=== PATIENT | male | born 1955 | race Caucasian/White ===

== ENCOUNTER 2023-12-22 11:56 | Inpatient (IN) | payer MEDICARE, MEDICAID ==
[~2023-12-22] VITALS: Ht 175.3 cm; Wt 90.1 kg
[~2023-12-22 11:56] MED LIST: AMLO5TAB16 PO; APIX5TAB3 PO; FOLI1TAB27 PO; MULT-1085 PO; THIA50TA10 PO
[2023-12-22] MEDS: methylPREDNISolone sod succ 125mg/2ml vial IV ONE (12:45)
[2023-12-22 12:55] LABS: BASOPHILS # (AUTO) 0.1 X10'3 (0-0.2); BASOPHILS % (AUTO) 0.9 % (0-1); EOSINOPHILS # (AUTO) 0.1 X10'3 (0-0.9); EOSINOPHILS % (AUTO) 0.7 % (0-6); LYMPHOCYTES % (AUTO) 12.9 % (21-51); MEAN PLATELET VOLUME 6.9 FL (7.4-10.4); MONOCYTES # (AUTO) 0.8 X10'3 (0-0.9); MONOCYTES % (AUTO) 10.1 % (2-12); NEUTROPHILS # (AUTO) 6.1 X10'3 (1.8-7.7); NEUTROPHILS % (AUTO) 75.4 % (42-75); PLATELET COUNT 284 X10'3 (140-440); WHITE BLOOD COUNT 8.1 X10'3 (4.5-11.0)
[2023-12-22] MEDS: diphenhydrAMINE 50 mg/ml inj IV ONE (12:55)
[2023-12-22] MEDS: ipratropium/albuterol 3ml nebule NEB ONE (13:00)
[2023-12-22 13:03] VITALS: PULSE 2; RESP 16; O2SAT 91
[2023-12-22 13:09] VITALS: PULSE 84; RESP 18; O2SAT 98
[2023-12-22 13:11] LABS: APTT 31 SECONDS (22-32); D-DIMER 0.39 MG/L FEU (0-0.50); PROTHROMBIN TIME 11.1 SECONDS (9.0-12.0)
[2023-12-22 13:19] LABS: ALBUMIN 2.9 G/DL (3.4-5.0); ANION GAP 5 (8-16); BLOOD UREA NITROGEN 16 MG/DL (7-18); CALCIUM 8.4 MG/DL (8.5-10.1); CHLORIDE 102 MMOL/L (99-107); CREATININE 1.07 MG/DL (0.60-1.10); GLUCOSE 107 MG/DL (70-104); POTASSIUM 4.1 MMOL/L (3.5-5.1); PRO BRAIN NATRIURETIC PEPTIDE 2295 PG/ML (0-125); SODIUM 137 MMOL/L (135-145); TOTAL CARBON DIOXIDE 29.6 MMOL/L (24-32); eCRCL 68 ML/MIN; eGFR 69 ML/MIN
[2023-12-22 13:50] LABS: RED BLOOD COUNT 5.24 X10'6 (4.70-6.10)
[2023-12-22 13:51] LABS: HEMATOCRIT 39.8 % (42.0-52.0); HEMOGLOBIN 12.6 g/dl (14.0-17.9); MEAN CORPUSCULAR HEMOGLOBIN 24.1 PG (27.0-31.0); MEAN CORPUSCULAR HGB CONC 31.7 g/dL (33.0-36.5); MEAN CORPUSCULAR VOLUME 75.9 FL (78-98); RED CELL DISTRIBUTION WIDTH 16.6 % (11.5-14.5)
[2023-12-22] MEDS: CefTRIAXone 2gm/D5W 50ml BAG 50 ML IV ONE (14:14)
[2023-12-22] MEDS: normal saline 1000ML IV soln IVB ONE (14:16)
[2023-12-22] MEDS: azithromycin/NS 500mg/250ml 250 ML IV ONE (14:23)
[2023-12-22 14:35] LABS: ANISOCYTOSIS 1+; HYPOCHROMASIA 1+; MICROCYTOSIS 1+; PLATELET ESTIMATE NORMAL
[2023-12-22 14:36] LABS: ELLIPTOCYTES FEW; POLYCHROMASIA FEW
[2023-12-22] MEDS ORDERED: magnesium 2GM in 50ml NS 50 ML IV PRN (17:25)
[2023-12-22] MEDS ORDERED: morphine 2 MG/ML inj. syringe IV PRN ×2 (17:25)
[2023-12-22] MEDS ORDERED: potassium Cl 40MEQ/1/2NS 520ml 520 ML IV PRN (17:25)
[2023-12-22] MEDS ORDERED: acetaminophen 325mg tablet PO PRN (17:25)
[2023-12-22] MEDS ORDERED: magnesium Cl slow-release 64mg tablet PO PRN (17:25)
[2023-12-22] MEDS ORDERED: ondansetron/PF 4mg/2ml inj IV PRN (17:25)
[2023-12-22] MEDS: heparin 10,000 units/1 ML INJ IV ONE (17:25)
[2023-12-22] MEDS ORDERED: magnesium 4gm in 100ml NS 100 ML IV PRN (17:25)
[2023-12-22] MEDS ORDERED: HYDROcodone/acetaminophen 5mg/325mg tablet PO PRN (17:25)
[2023-12-22] MEDS ORDERED: heparin 10,000 units/1 ML INJ IV PRN (17:25)
[2023-12-22] MEDS ORDERED: potassium Cl 20 mEq SR tablet PO PRN ×2 (17:25)
[2023-12-22] MEDS ORDERED: heparin 25,000 UNIT/250ml bag 250 ML IV PRN (17:25)
[2023-12-22] MEDS ORDERED: HYDROcodone/acetaminophen 10/325mg tab PO PRN (17:25)
[2023-12-22] MEDS: pantoprazole 40 MG vial IV ONE (18:14)
[2023-12-22] MEDS: furosemide 10 MG/1 ML 10ml inj IV ONE (18:15)
[2023-12-22] MEDS: nicotine 14mg patch - 24hr TD SCH (18:20)
[2023-12-22] MEDS ORDERED: apixaban 5mg tablet PO SCH (20:00)
[2023-12-22 22:40] VITALS: BP 134/82; PULSE 84; RESP 22; TEMP 97.7; O2SAT 94
[2023-12-22] MEDS: heparin 25,000 UNIT/250ml bag 250 ML IV PRN (23:06)
[2023-12-23 02:00] VITALS: BP 140/85; PULSE 90; RESP 19; TEMP 98.1; O2SAT 93
[2023-12-23 03:15] VITALS: RESP 18; O2SAT 93
[2023-12-23 06:00] VITALS: BP 137/84; PULSE 75; RESP 20; TEMP 98.3; O2SAT 90
[2023-12-23 07:45] LABS: BASOPHILS # (AUTO) 0.1 X10'3 (0-0.2); BASOPHILS % (AUTO) 0.8 % (0-1); EOSINOPHILS # (AUTO) 0.2 X10'3 (0-0.9); EOSINOPHILS % (AUTO) 1.9 % (0-6); HEMATOCRIT 41.8 % (42.0-52.0); LYMPHOCYTES # (AUTO) 1.5 X10'3 (1.1-4.8); LYMPHOCYTES % (AUTO) 14.8 % (21-51); MEAN CORPUSCULAR HEMOGLOBIN 24.1 PG (27.0-31.0); MEAN CORPUSCULAR VOLUME 77.6 FL (78-98); MEAN PLATELET VOLUME 7.2 FL (7.4-10.4); MONOCYTES % (AUTO) 9.7 % (2-12); NEUTROPHILS # (AUTO) 7.2 X10'3 (1.8-7.7); NEUTROPHILS % (AUTO) 72.8 % (42-75); PLATELET COUNT 279 X10'3 (140-440); RED BLOOD COUNT 5.39 X10'6 (4.70-6.10); RED CELL DISTRIBUTION WIDTH 17.2 % (11.5-14.5); WHITE BLOOD COUNT 9.9 X10'3 (4.5-11.0)
[2023-12-23 07:58] LABS: ALANINE AMINOTRANSFERASE 26 U/L (12-78); ALBUMIN/GLOBULIN RATIO 0.7 (1.1-1.5); ALKALINE PHOSPHATASE 88 IU/L (46-116); ANION GAP 6 (8-16); ASPARTATE AMINO TRANSFERASE 30 U/L (10-37); BILIRUBIN,TOTAL 0.5 MG/DL (0.1-1.0); BLOOD UREA NITROGEN 13 MG/DL (7-18); CALCIUM 8.6 MG/DL (8.5-10.1); CHLORIDE 101 MMOL/L (99-107); CREATININE 1.08 MG/DL (0.60-1.10); GLUCOSE 95 MG/DL (70-104); POTASSIUM 4.1 MMOL/L (3.5-5.1); SODIUM 141 MMOL/L (135-145); TOTAL CARBON DIOXIDE 34.1 MMOL/L (24-32); TOTAL PROTEIN 7.1 G/DL (6.4-8.2); eCRCL 67 ML/MIN; eGFR 68 ML/MIN
[2023-12-23] MEDS: furosemide 20 MG/2 ML vial IV SCH (09:07)
[2023-12-23 15:00] VITALS: BP 112/76; PULSE 86; RESP 23; TEMP 97.7; O2SAT 99
[2023-12-23 18:00] VITALS: BP 130/78; PULSE 86; RESP 18; TEMP 97.5; O2SAT 93
[2023-12-23] MEDS ORDERED: LORazepam 0.5 MG tablet PO PRN (18:45)
[2023-12-23] MEDS ORDERED: LORazepam 2 mg/ml vial IV PRN (18:45)
[2023-12-23] MEDS: heparin 10,000 units/1 ML INJ IV PRN (20:32)
[2023-12-23] MEDS: benzonatate 100mg capsule PO PRN (20:35)
[2023-12-23 22:00] VITALS: BP 107/66; PULSE 82; RESP 16; TEMP 97.7; O2SAT 92
[2023-12-24 02:00] VITALS: BP 118/73; PULSE 82; RESP 21; TEMP 97.1; O2SAT 94
[2023-12-24 06:45] VITALS: BP 130/79; PULSE 73; RESP 19; TEMP 97.5; O2SAT 98
[2023-12-24 07:19] LABS: BASOPHILS # (AUTO) 0.1 X10'3 (0-0.2); BASOPHILS % (AUTO) 0.9 % (0-1); EOSINOPHILS # (AUTO) 0.1 X10'3 (0-0.9); EOSINOPHILS % (AUTO) 1.4 % (0-6); LYMPHOCYTES # (AUTO) 1.1 X10'3 (1.1-4.8); LYMPHOCYTES % (AUTO) 12.5 % (21-51); MEAN PLATELET VOLUME 7.6 FL (7.4-10.4); MONOCYTES % (AUTO) 11.6 % (2-12); NEUTROPHILS # (AUTO) 6.6 X10'3 (1.8-7.7); NEUTROPHILS % (AUTO) 73.6 % (42-75); PLATELET COUNT 288 X10'3 (140-440); RED CELL DISTRIBUTION WIDTH 17.4 % (11.5-14.5)
[2023-12-24 07:49] LABS: ALANINE AMINOTRANSFERASE 22 U/L (12-78); ALBUMIN 2.6 G/DL (3.4-5.0); ALBUMIN/GLOBULIN RATIO 0.6 (1.1-1.5); ALKALINE PHOSPHATASE 84 IU/L (46-116); ANION GAP -1 (8-16); ASPARTATE AMINO TRANSFERASE 15 U/L (10-37); BILIRUBIN,TOTAL 0.4 MG/DL (0.1-1.0); BLOOD UREA NITROGEN 14 MG/DL (7-18); BUN/CREATININE RATIO 14.7 (10.0-20.0); CALCIUM 8.6 MG/DL (8.5-10.1); CHLORIDE 103 MMOL/L (99-107); CREATININE 0.95 MG/DL (0.60-1.10); GLUCOSE 84 MG/DL (70-104); POTASSIUM 4.2 MMOL/L (3.5-5.1); SODIUM 142 MMOL/L (135-145); TOTAL CARBON DIOXIDE 39.7 MMOL/L (24-32); TOTAL PROTEIN 7.1 G/DL (6.4-8.2); eCRCL 76 ML/MIN; eGFR 79 ML/MIN
[2023-12-24 07:52] LABS: HEMATOCRIT 44.8 % (42.0-52.0); HEMOGLOBIN 14.3 g/dl (14.0-17.9); MEAN CORPUSCULAR HGB CONC 31.9 g/dL (33.0-36.5); MEAN CORPUSCULAR VOLUME 75.2 FL (78-98); RED BLOOD COUNT 5.96 X10'6 (4.70-6.10)
[2023-12-24] MEDS: acetaminophen 325mg tablet PO PRN (08:04)
[2023-12-24] MEDS: thiamine 100mg tablet PO SCH (08:04)
[2023-12-24] MEDS: folic acid 1mg tablet PO SCH (08:04)
[2023-12-24] MEDS: multivitamins, therapeutics tablet PO SCH (08:04)
[2023-12-24 11:00] VITALS: BP 115/70; PULSE 75; RESP 16; TEMP 97.8; O2SAT 94
[2023-12-24] MEDS ORDERED: NICO-631 TD (12:15)
[2023-12-24] MEDS ORDERED: APIX5TAB3 PO (12:15)
[2023-12-24] MEDS ORDERED: FURO20TA4 PO (12:15)
== END 2023-12-24 14:37 | disposition home or self-care (01) | DRG 299 ==
LOC: ER 11:56 → ED HOLD 17:30 → PCU 3S 22:35
PROVIDERS: ADMIT Internal Medicine; ATTEND Internal Medicine
PROC: CB121ZZ Planar Nuclear Medicine Imaging of Lungs and Bronchi using Technetium 99m (Tc-99m) (ICD-10-PCS; principal; 2023-12-23)
DX: I82.411 Acute embolism and thrombosis of right femoral vein (principal); J96.01 Acute respiratory failure with hypoxia; I13.0 Hypertensive heart and chronic kidney disease with heart failure and stage 1 through stage 4 chronic kidney disease, or unspecified chronic kidney disease; I50.9 Heart failure, unspecified; F17.210 Nicotine dependence, cigarettes, uncomplicated; N18.30 Chronic kidney disease, stage 3 unspecified; Z20.822 Contact with and (suspected) exposure to COVID-19; I82.511 Chronic embolism and thrombosis of right femoral vein; I82.531 Chronic embolism and thrombosis of right popliteal vein; I82.561 Chronic embolism and thrombosis of right calf muscular vein; F10.90 Alcohol use, unspecified, uncomplicated; Z86.711 Personal history of pulmonary embolism; Z88.0 Allergy status to penicillin; Z91.041 Radiographic dye allergy status; Z79.899 Other long term (current) drug therapy; Z71.6 Tobacco abuse counseling
CPT/HCPCS: 36415; 71045; 78582; 80048; 80053; 83605; 83880; 84484; 85008; 85025; 85379; 85610; 85730; 87040; 87081; 87502; 87503; 87811; 93005; 93306; 93970; 94640; 94760; 97161; 97530; 97535; 99285; A9539; A9540; C9113; G0378; J0456; J0696; J1644; J1940; J7030

== ENCOUNTER 2024-05-13 12:54 | Inpatient (IN) | payer MEDICARE, MEDICAID ==
[~2024-05-13] VITALS: Ht 175.3 cm; Wt 94.0 kg
[~2024-05-13 12:54] MED LIST changes: +FURO20TA4 PO; +NICO-631 TD
[2024-05-13 14:09] LABS: BASOPHILS # (AUTO) 0.1 X10'3 (0-0.2); BASOPHILS % (AUTO) 1.5 % (0-1); EOSINOPHILS # (AUTO) 0.1 X10'3 (0-0.9); EOSINOPHILS % (AUTO) 1.3 % (0-6); HEMATOCRIT 43.4 % (42.0-52.0); HEMOGLOBIN 12.8 g/dl (14.0-17.9); LYMPHOCYTES # (AUTO) 0.5 X10'3 (1.1-4.8); LYMPHOCYTES % (AUTO) 8.6 % (21-51); MEAN CORPUSCULAR HEMOGLOBIN 21.2 PG (27.0-31.0); MEAN CORPUSCULAR HGB CONC 29.5 g/dL (33.0-36.5); MEAN CORPUSCULAR VOLUME 71.6 FL (78-98); MEAN PLATELET VOLUME 6.9 FL (7.4-10.4); MONOCYTES # (AUTO) 0.7 X10'3 (0-0.9); MONOCYTES % (AUTO) 10.9 % (2-12); NEUTROPHILS # (AUTO) 4.8 X10'3 (1.8-7.7); NEUTROPHILS % (AUTO) 77.7 % (42-75); PLATELET COUNT 267 X10'3 (140-440); RED BLOOD COUNT 6.06 X10'6 (4.70-6.10); RED CELL DISTRIBUTION WIDTH 18.7 % (11.5-14.5); WHITE BLOOD COUNT 6.2 X10'3 (4.5-11.0)
[2024-05-13 14:28] LABS: ANION GAP 6 (8-16); BLOOD UREA NITROGEN 15 MG/DL (7-18); BUN/CREATININE RATIO 12.6 (10.0-20.0); CALCIUM 8.4 MG/DL (8.5-10.1); CHLORIDE 101 MMOL/L (99-107); CREATININE 1.19 MG/DL (0.60-1.10); GLUCOSE 121 MG/DL (70-104); PRO BRAIN NATRIURETIC PEPTIDE 1713 PG/ML (0-125); SODIUM 139 MMOL/L (135-145); TOTAL CARBON DIOXIDE 32.1 MMOL/L (24-32); eCRCL 61 ML/MIN; eGFR 61 ML/MIN
[2024-05-13 14:30] LABS: POTASSIUM 4.4 MMOL/L (3.5-5.1)
[2024-05-13] MEDS: furosemide 10 MG/1 ML 10ml inj IV ONE (15:46)
[2024-05-13] MEDS ORDERED: magnesium hydroxide 30ml (MOM) UD suspension PO PRN ×2 (16:25→17:45)
[2024-05-13] MEDS ORDERED: magnesium Cl slow-release 64mg tablet PO PRN ×2 (16:25→17:45)
[2024-05-13] MEDS ORDERED: ondansetron/PF 4mg/2ml inj IV PRN ×2 (16:25→17:45)
[2024-05-13] MEDS ORDERED: magnesium sulf-water 4G/100mL 100 ML IV PRN ×2 (16:25→17:45)
[2024-05-13] MEDS ORDERED: potassium Cl 40MEQ/1/2NS 520ml 520 ML IV PRN ×2 (16:25→17:45)
[2024-05-13] MEDS ORDERED: mag hydrox/Alum hydrox/simeth 30ml oral suspension PO PRN ×2 (16:25→17:45)
[2024-05-13] MEDS ORDERED: magnesium sulf-water 2g/50mL 50 ML IV PRN ×2 (16:25→17:45)
[2024-05-13] MEDS ORDERED: potassium Cl 20 mEq SR tablet PO PRN ×4 (16:25→17:45)
[2024-05-13] MEDS ORDERED: MELO-100 (16:38)
[2024-05-13] MEDS ORDERED: ALBUTEROL (16:38)
[2024-05-13] MEDS: furosemide 10 MG/1 ML 10ml inj IV SCH (17:15)
[2024-05-13 17:35] LABS: MAGNESIUM 2.1 MG/DL (1.5-2.4); POTASSIUM 4.4 MMOL/L (3.5-5.1)
[2024-05-13] MEDS ORDERED: albuterol 2.5 MG/3 ML nebule NEB PRN (17:40)
[2024-05-13] MEDS ORDERED: acetaminophen 325mg tablet PO PRN (17:45)
[2024-05-13] MEDS ORDERED: K and/or MAG REPLACEMENT MC SCH (20:00)
[2024-05-13] MEDS: K and/or MAG REPLACEMENT MC SCH (20:00)
[2024-05-13] MEDS: apixaban 5mg tablet PO SCH (20:08)
[2024-05-13] MEDS: docusate sod 100mg capsule PO SCH (20:08)
[2024-05-13 21:22] VITALS: PULSE 83; RESP 18; O2SAT 93
[2024-05-13 22:00] VITALS: BP 126/71; PULSE 92; RESP 16; RESP 25; TEMP 97.3; O2SAT 90
[2024-05-14 07:04] LABS: ALBUMIN 2.7 G/DL (3.4-5.0); ANION GAP 5 (8-16); BLOOD UREA NITROGEN 17 MG/DL (7-18); BUN/CREATININE RATIO 14.8 (10.0-20.0); CALCIUM 8.4 MG/DL (8.5-10.1); CHLORIDE 100 MMOL/L (99-107); CREATININE 1.15 MG/DL (0.60-1.10); GLUCOSE 92 MG/DL (70-104); MAGNESIUM 2.1 MG/DL (1.5-2.4); POTASSIUM 3.9 MMOL/L (3.5-5.1); SODIUM 140 MMOL/L (135-145); TOTAL CARBON DIOXIDE 34.6 MMOL/L (24-32); eCRCL 63 ML/MIN; eGFR 64 ML/MIN
[2024-05-14 07:25] LABS: BASOPHILS # (AUTO) 0.1 X10'3 (0-0.2); BASOPHILS % (AUTO) 1.3 % (0-1); EOSINOPHILS # (AUTO) 0.1 X10'3 (0-0.9); HEMATOCRIT 42.9 % (42.0-52.0); HEMOGLOBIN 12.6 g/dl (14.0-17.9); LYMPHOCYTES # (AUTO) 0.6 X10'3 (1.1-4.8); MEAN CORPUSCULAR HEMOGLOBIN 21.1 PG (27.0-31.0); MEAN CORPUSCULAR HGB CONC 29.4 g/dL (33.0-36.5); MEAN CORPUSCULAR VOLUME 71.9 FL (78-98); MEAN PLATELET VOLUME 7.1 FL (7.4-10.4); MONOCYTES # (AUTO) 0.8 X10'3 (0-0.9); MONOCYTES % (AUTO) 11.4 % (2-12); NEUTROPHILS # (AUTO) 5.4 X10'3 (1.8-7.7); NEUTROPHILS % (AUTO) 76.3 % (42-75); PLATELET COUNT 250 X10'3 (140-440); RED BLOOD COUNT 5.97 X10'6 (4.70-6.10); RED CELL DISTRIBUTION WIDTH 18.4 % (11.5-14.5)
[2024-05-14] MEDS: nicotine 14mg patch - 24hr TD SCH (08:37)
[2024-05-14] MEDS: folic acid 1mg tablet PO SCH (08:37)
[2024-05-14] MEDS: acetaminophen 325mg tablet PO PRN (08:37)
[2024-05-14] MEDS: thiamine 100mg tablet PO SCH (08:38)
[2024-05-14] MEDS: amLODIPine 5mg tablet PO SCH (08:38)
[2024-05-14] MEDS: multivitamins, therapeutics tablet PO SCH (08:38)
[2024-05-14 09:20] LABS: ANISOCYTOSIS 2+; MICROCYTOSIS 1+; PLATELET ESTIMATE NORMAL; POLYCHROMASIA FEW
[2024-05-14 10:01] LABS: D-DIMER 0.58 MG/L FEU (0-0.50)
[2024-05-14 10:05] VITALS: BP 125/68; PULSE 84; RESP 18; TEMP 97.6; O2SAT 92
[2024-05-14] MEDS: cefazolin 2gm/D5W 100mL 100 ML IV SCH (16:12)
[2024-05-14 18:00] VITALS: BP 125/60; PULSE 64; RESP 20; TEMP 97.8; O2SAT 95
[2024-05-14 20:00] VITALS: RESP 20; O2SAT 95
[2024-05-14 22:00] VITALS: BP 138/88; PULSE 78; RESP 16; TEMP 97; O2SAT 94
[2024-05-15] VITALS (10 sets, daily range): BP systolic 95–120; BP diastolic 66–74; PULSE 65–86; RESP 14–18; TEMP 97.3–98.2; O2SAT 91–96
[2024-05-15 06:45] LABS: BASOPHILS # (AUTO) 0.1 X10'3 (0-0.2); BASOPHILS % (AUTO) 0.9 % (0-1); EOSINOPHILS # (AUTO) 0.2 X10'3 (0-0.9); EOSINOPHILS % (AUTO) 2.1 % (0-6); HEMATOCRIT 44.7 % (42.0-52.0); HEMOGLOBIN 12.8 g/dl (14.0-17.9); LYMPHOCYTES # (AUTO) 0.7 X10'3 (1.1-4.8); LYMPHOCYTES % (AUTO) 8.8 % (21-51); MEAN CORPUSCULAR HEMOGLOBIN 20.8 PG (27.0-31.0); MEAN CORPUSCULAR HGB CONC 28.6 g/dL (33.0-36.5); MEAN CORPUSCULAR VOLUME 72.5 FL (78-98); MEAN PLATELET VOLUME 6.9 FL (7.4-10.4); MONOCYTES # (AUTO) 1.1 X10'3 (0-0.9); MONOCYTES % (AUTO) 13.2 % (2-12); NEUTROPHILS # (AUTO) 6.1 X10'3 (1.8-7.7); PLATELET COUNT 268 X10'3 (140-440); RED BLOOD COUNT 6.16 X10'6 (4.70-6.10); RED CELL DISTRIBUTION WIDTH 18.7 % (11.5-14.5); WHITE BLOOD COUNT 8.2 X10'3 (4.5-11.0)
[2024-05-15 06:56] LABS: ALBUMIN 2.6 G/DL (3.4-5.0); ANION GAP 1 (8-16); BLOOD UREA NITROGEN 18 MG/DL (7-18); BUN/CREATININE RATIO 16.1 (10.0-20.0); C-REACTIVE PROTEIN 1.03 MG/DL (0.0-0.5); CALCIUM 8.5 MG/DL (8.5-10.1); CHLORIDE 101 MMOL/L (99-107); CREATININE 1.12 MG/DL (0.60-1.10); GLUCOSE 93 MG/DL (70-104); MAGNESIUM 2.2 MG/DL (1.5-2.4); POTASSIUM 3.9 MMOL/L (3.5-5.1); SODIUM 140 MMOL/L (135-145); TOTAL CARBON DIOXIDE 38.4 MMOL/L (24-32); eCRCL 65 ML/MIN; eGFR 66 ML/MIN
[2024-05-15] MEDS: albuterol 2.5 MG/3 ML nebule NEB PRN (20:30)
[2024-05-16 05:59] LABS: BASOPHILS # (AUTO) 0.1 X10'3 (0-0.2); BASOPHILS % (AUTO) 1.1 % (0-1); EOSINOPHILS # (AUTO) 0.1 X10'3 (0-0.9); EOSINOPHILS % (AUTO) 1.6 % (0-6); HEMATOCRIT 45.4 % (42.0-52.0); HEMOGLOBIN 13.4 g/dl (14.0-17.9); LYMPHOCYTES % (AUTO) 11.8 % (21-51); MEAN CORPUSCULAR HEMOGLOBIN 21.2 PG (27.0-31.0); MEAN CORPUSCULAR HGB CONC 29.6 g/dL (33.0-36.5); MEAN CORPUSCULAR VOLUME 71.7 FL (78-98); MEAN PLATELET VOLUME 7.1 FL (7.4-10.4); MONOCYTES # (AUTO) 1.2 X10'3 (0-0.9); MONOCYTES % (AUTO) 14.9 % (2-12); NEUTROPHILS # (AUTO) 5.9 X10'3 (1.8-7.7); NEUTROPHILS % (AUTO) 70.6 % (42-75); PLATELET COUNT 264 X10'3 (140-440); RED BLOOD COUNT 6.32 X10'6 (4.70-6.10); RED CELL DISTRIBUTION WIDTH 18.7 % (11.5-14.5); WHITE BLOOD COUNT 8.3 X10'3 (4.5-11.0)
[2024-05-16 06:19] LABS: ALBUMIN 2.8 G/DL (3.4-5.0); ANION GAP 2 (8-16); BLOOD UREA NITROGEN 21 MG/DL (7-18); BUN/CREATININE RATIO 16.3 (10.0-20.0); CALCIUM 8.8 MG/DL (8.5-10.1); CHLORIDE 99 MMOL/L (99-107); CREATININE 1.29 MG/DL (0.60-1.10); GLUCOSE 97 MG/DL (70-104); MAGNESIUM 2.1 MG/DL (1.5-2.4); POTASSIUM 3.9 MMOL/L (3.5-5.1); SODIUM 140 MMOL/L (135-145); TOTAL CARBON DIOXIDE 38.6 MMOL/L (24-32); eCRCL 56 ML/MIN; eGFR 56 ML/MIN
[2024-05-16] MEDS: furosemide 20 MG/2 ML vial IV SCH (07:38)
[2024-05-16 08:00] VITALS: RESP 18; O2SAT 95
[2024-05-16] MEDS: predniSONE 20 mg tablet PO SCH (08:30)
[2024-05-16 09:55] VITALS: PULSE 92; RESP 18; O2SAT 92
[2024-05-16 10:00] VITALS: BP 134/67; PULSE 72; RESP 16; TEMP 97.8; O2SAT 98
[2024-05-16] MEDS ORDERED: CEPH500C2 PO (13:20)
[2024-05-16] MEDS ORDERED: BUDE10.2 INH (13:20)
[2024-05-16] MEDS ORDERED: PRED10TA23 PO (13:20)
[2024-05-16] MEDS ORDERED: LACT1CAP76 PO (13:20)
== END 2024-05-16 14:32 | disposition home or self-care (01) | DRG 602 ==
LOC: ER 12:54 → ED HOLD 16:30 → UNDOADMIN 16:30 → ED HOLD 17:46 → ORTHO 4S 21:55
PROVIDERS: ADMIT Family Medicine; ATTEND Family Medicine
DX: L03.116 Cellulitis of left lower limb (principal); I50.33 Acute on chronic diastolic (congestive) heart failure; J96.01 Acute respiratory failure with hypoxia; I82.501 Chronic embolism and thrombosis of unspecified deep veins of right lower extremity; I11.0 Hypertensive heart disease with heart failure; L03.115 Cellulitis of right lower limb; J44.9 Chronic obstructive pulmonary disease, unspecified; F17.210 Nicotine dependence, cigarettes, uncomplicated; Z91.041 Radiographic dye allergy status; Z88.0 Allergy status to penicillin; Z84.1 Family history of disorders of kidney and ureter; Z82.49 Family history of ischemic heart disease and other diseases of the circulatory system; Z79.01 Long term (current) use of anticoagulants; Z86.711 Personal history of pulmonary embolism
CPT/HCPCS: 36415; 71045; 80048; 83605; 83735; 83880; 84132; 84145; 84484; 85008; 85025; 85379; 86140; 87081; 93005; 93970; 94640; 94760; 99285; A4615; A6209; A6258; G0378; J0690; J1940; J7040; J7512

== ENCOUNTER 2024-08-02 11:39 | Inpatient (IN) | payer MEDICARE, MEDICAID ==
[~2024-08-02] VITALS: Ht 175.3 cm; Wt 110.0 kg
[2024-08-02] VITALS (8 sets, daily range): BP systolic 130; BP diastolic 76; PULSE 80–103; RESP 16–22; TEMP 97.6; O2SAT 90–93
[~2024-08-02 11:39] MED LIST changes: +ALBUTEROL; +BUDE10.2 INH; +LACT1CAP76 PO; +MELO-100
[2024-08-02] MEDS: aspirin 81mg tab.chew PO ONE (12:03)
[2024-08-02 12:20] LABS: ALBUMIN 2.8 G/DL (3.4-5.0); ANION GAP 6 (8-16); BLOOD UREA NITROGEN 27 MG/DL (7-18); BUN/CREATININE RATIO 16.7 (10.0-20.0); CALCIUM 8.1 MG/DL (8.5-10.1); CHLORIDE 103 MMOL/L (99-107); CREATININE 1.62 MG/DL (0.60-1.10); GLUCOSE 138 MG/DL (70-104); MAGNESIUM 2.3 MG/DL (1.5-2.4); POTASSIUM 4.2 MMOL/L (3.5-5.1); PRO BRAIN NATRIURETIC PEPTIDE 3939 PG/ML (0-125); SODIUM 140 MMOL/L (135-145); TOTAL CARBON DIOXIDE 31.2 MMOL/L (24-32); eCRCL 45 ML/MIN; eGFR 43 ML/MIN
[2024-08-02 12:21] LABS: BASOPHILS # (AUTO) 0.1 X10'3 (0-0.2); EOSINOPHILS # (AUTO) 0.1 X10'3 (0-0.9); EOSINOPHILS % (AUTO) 0.8 % (0-6); LYMPHOCYTES # (AUTO) 0.9 X10'3 (1.1-4.8); LYMPHOCYTES % (AUTO) 13.1 % (21-51); MEAN PLATELET VOLUME 7.3 FL (7.4-10.4); MONOCYTES # (AUTO) 0.8 X10'3 (0-0.9); MONOCYTES % (AUTO) 12.6 % (2-12); NEUTROPHILS # (AUTO) 4.8 X10'3 (1.8-7.7); NEUTROPHILS % (AUTO) 72.5 % (42-75); PLATELET COUNT 255 X10'3 (140-440); RED BLOOD COUNT 5.24 X10'6 (4.70-6.10); RED CELL DISTRIBUTION WIDTH 20.7 % (11.5-14.5); WHITE BLOOD COUNT 6.6 X10'3 (4.5-11.0)
[2024-08-02] MEDS: aspirin 325mg tablet PO ONE (12:32)
[2024-08-02] MEDS: furosemide 10 MG/1 ML 10ml inj IV ONE (12:40)
[2024-08-02 12:48] LABS: HEMATOCRIT 35.7 % (42.0-52.0); HEMOGLOBIN 10.2 g/dl (14.0-17.9); MEAN CORPUSCULAR VOLUME 71.2 FL (78-98)
[2024-08-02 12:49] LABS: MEAN CORPUSCULAR HEMOGLOBIN 20.3 PG (27.0-31.0); MEAN CORPUSCULAR HGB CONC 28.5 g/dL (33.0-36.5)
[2024-08-02 12:51] LABS: ANISOCYTOSIS 3+; HYPOCHROMASIA 1+; LARGE PLATELETS FEW; MICROCYTOSIS 1+; PLATELET ESTIMATE NORMAL; SPHEROCYTES 1+
[2024-08-02 12:52] LABS: ELLIPTOCYTES FEW; TEAR DROP CELLS FEW
[2024-08-02 13:02] LABS: D-DIMER 0.76 MG/L FEU (0-0.50); INR 1.1 INR; PROTHROMBIN TIME 11.7 SECONDS (9.0-12.0)
[2024-08-02] MEDS ORDERED: potassium Cl 40MEQ/1/2NS 520ml 520 ML IV PRN (13:05)
[2024-08-02] MEDS ORDERED: magnesium sulf-water 4G/100mL 100 ML IV PRN (13:05)
[2024-08-02] MEDS ORDERED: magnesium Cl slow-release 64mg tablet PO PRN (13:05)
[2024-08-02] MEDS: PERFLUTREN PROTEIN-A MICROSPHR (Optison) 0.22 MG/ML 3ML VIAL IV ONE (13:05)
[2024-08-02] MEDS ORDERED: magnesium hydroxide 30ml (MOM) UD suspension PO PRN (13:05)
[2024-08-02] MEDS ORDERED: magnesium sulf-water 2g/50mL 50 ML IV PRN (13:05)
[2024-08-02] MEDS ORDERED: potassium Cl 20 mEq SR tablet PO PRN ×2 (13:05)
[2024-08-02] MEDS ORDERED: mag hydrox/Alum hydrox/simeth 30ml oral suspension PO PRN (13:05)
[2024-08-02] MEDS ORDERED: ondansetron/PF 4mg/2ml inj IV PRN (13:05)
[2024-08-02] MEDS: heparin 25,000 UNIT/250ml bag 250 ML IV PRN (13:29)
[2024-08-02] MEDS: heparin 10,000 units/1 ML INJ IV ONE (13:33)
[2024-08-02] MEDS: MESSAGE TO NURSING IV ONE ×2 (13:42→20:55)
[2024-08-02 14:02] LABS: URINE AMPHETAMINE SCREEN NEGATIVE (Neg); URINE BARBITUATE SCREEN NEGATIVE (Neg); URINE BENZODIAZEPINES SCREEN NEGATIVE (Neg); URINE CANNABINOID SCREEN POSITIVE (Neg); URINE COCAINE SCREEN NEGATIVE (Neg); URINE METHADONE SCREEN NEGATIVE (Neg); URINE OPIATE SCREEN NEGATIVE (Neg); URINE PHENCYCLIDINE SCREEN NEGATIVE (Neg)
[2024-08-02] MEDS: ipratropium/albuterol 3ml nebule NEB SCH (16:13)
[2024-08-02] MEDS ORDERED: ipratropium/albuterol 3ml nebule NEB PRN (19:30)
[2024-08-02] MEDS: metoprolol succinate 25mg (24-HOUR) SR. Tablet PO SCH (19:30)
[2024-08-02] MEDS ORDERED: albuterol 2.5 MG/3 ML nebule NEB PRN (19:30)
[2024-08-02] MEDS ORDERED: nicotine 14mg patch - 24hr TD PRN (19:55)
[2024-08-02] MEDS ORDERED: heparin, porcine 5000 units/ml vial SQ SCH (20:00)
[2024-08-02] MEDS: sacubitril/valsartan 24mg-26mg tablet PO SCH (20:00)
[2024-08-02] MEDS: K and/or MAG REPLACEMENT MC SCH (20:00)
[2024-08-02] MEDS: heparin 10,000 units/1 ML INJ IV PRN (21:27)
[2024-08-02] MEDS: furosemide 10 MG/1 ML 10ml inj IV SCH (21:41)
[2024-08-02] MEDS: EMPAGLIFLOZIN 10 MG TABLET PO SCH (21:51)
[2024-08-03] VITALS (15 sets, daily range): BP systolic 102–131; BP diastolic 65–78; PULSE 71–89; RESP 12–22; TEMP 97.6–98; O2SAT 86–96
[2024-08-03] MEDS: MESSAGE TO NURSING IV ONE (05:30)
[2024-08-03 06:47] LABS: BASOPHILS # (AUTO) 0.1 X10'3 (0-0.2); BASOPHILS % (AUTO) 0.7 % (0-1); EOSINOPHILS # (AUTO) 0.1 X10'3 (0-0.9); EOSINOPHILS % (AUTO) 0.6 % (0-6); HEMOGLOBIN 10.2 g/dl (14.0-17.9); LYMPHOCYTES # (AUTO) 0.8 X10'3 (1.1-4.8); LYMPHOCYTES % (AUTO) 8.7 % (21-51); MEAN PLATELET VOLUME 7.1 FL (7.4-10.4); MONOCYTES # (AUTO) 1.1 X10'3 (0-0.9); MONOCYTES % (AUTO) 12.6 % (2-12); NEUTROPHILS # (AUTO) 6.8 X10'3 (1.8-7.7); NEUTROPHILS % (AUTO) 77.4 % (42-75); PLATELET COUNT 248 X10'3 (140-440); RED BLOOD COUNT 4.95 X10'6 (4.70-6.10); RED CELL DISTRIBUTION WIDTH 20.9 % (11.5-14.5); WHITE BLOOD COUNT 8.7 X10'3 (4.5-11.0)
[2024-08-03 07:16] LABS: HEMATOCRIT 33.8 % (42.0-52.0)
[2024-08-03 07:17] LABS: MEAN CORPUSCULAR HEMOGLOBIN 21.4 PG (27.0-31.0); MEAN CORPUSCULAR VOLUME 71.2 FL (78-98)
[2024-08-03 07:26] LABS: CHOL/HDL RATIO 1.9 (0.00-4.99); CHOLESTEROL 144 MG/DL (0-200); FERRITIN 12 NG/ML (26-388); HDL CHOLESTEROL 77 MG/DL (35-60); LDL CHOLESTEROL 61 MG/DL (50-100); MAGNESIUM 2.2 MG/DL (1.5-2.4); TRIGLYCERIDES 30 MG/DL (20-135)
[2024-08-03 07:38] LABS: HEMOGLOBIN A1C 6.1 % (4.5-6.2)
[2024-08-03] MEDS ORDERED: LORazepam 2 mg/ml vial IV PRN (08:10)
[2024-08-03 08:51] LABS: ALANINE AMINOTRANSFERASE 24 U/L (12-78); ALBUMIN 2.7 G/DL (3.4-5.0); ALBUMIN/GLOBULIN RATIO 0.8 (1.1-1.5); ALKALINE PHOSPHATASE 69 IU/L (46-116); ANION GAP 7 (8-16); ASPARTATE AMINO TRANSFERASE 24 U/L (10-37); BILIRUBIN,TOTAL 0.6 MG/DL (0.1-1.0); BLOOD UREA NITROGEN 31 MG/DL (7-18); BUN/CREATININE RATIO 20.3 (10.0-20.0); CALCIUM 8.2 MG/DL (8.5-10.1); CHLORIDE 104 MMOL/L (99-107); CREATININE 1.53 MG/DL (0.60-1.10); GLUCOSE 86 MG/DL (70-104); POTASSIUM 4.5 MMOL/L (3.5-5.1); SODIUM 141 MMOL/L (135-145); TOTAL CARBON DIOXIDE 30.3 MMOL/L (24-32); TOTAL PROTEIN 5.9 G/DL (6.4-8.2); eCRCL 47 ML/MIN; eGFR 46 ML/MIN
[2024-08-03] MEDS: acetaminophen 325mg tablet PO PRN (09:00)
[2024-08-03] MEDS: methylPREDNISolone sod succ 125mg/2ml vial IV ONE (12:30)
[2024-08-03] MEDS: CefTRIAXone/D5W-Rocephin 1gm 50 ML IV SCH (12:30)
[2024-08-03] MEDS: azithromycin 250mg tablet PO SCH (13:52)
[2024-08-03] MEDS: folic acid 1mg tablet PO SCH (13:52)
[2024-08-03] MEDS: thiamine 100mg tablet PO SCH (13:53)
[2024-08-03] MEDS ORDERED: furosemide 40mg/4ml inj IV SCH (14:04)
[2024-08-03] MEDS: iron polysaccharide complex 150mg capsule PO SCH (14:40)
[2024-08-03] MEDS: methylPREDNISolone sod succ/PF 40mg inj. IV SCH (16:00)
[2024-08-03] MEDS ORDERED: dextrose 50%-water 50ml dispensing syringe IV PRN ×2 (19:15)
[2024-08-03] MEDS ORDERED: DEXTROSE 15 GM of carb/4 tabs (each vial/BOTTLE has 4 tablets) PO PRN ×2 (19:15)
[2024-08-03] MEDS ORDERED: glucagon, human recombinant 1mg kit SUBCUT PRN (19:15)
[2024-08-03] MEDS: ipratropium/albuterol 3ml nebule NEB PRN (19:23)
[2024-08-03] MEDS: apixaban 5mg tablet PO SCH ×2 (19:47→19:58)
[2024-08-03] MEDS: nicotine 14mg patch - 24hr TD SCH (19:54)
[2024-08-03] MEDS: furosemide 20 MG/2 ML vial IV SCH (19:57)
[2024-08-03] MEDS: INSULIN LISPRO 100 UNIT/ML INSULN.PEN MULTI-DOSE SQ SCH (21:00)
[2024-08-03] MEDS ORDERED: aminophylline 250mg/10ml inj. IV PRN (21:30)
[2024-08-03] MEDS ORDERED: metoprolol tartrate 1mg/ml inj IV PRN (21:30)
[2024-08-03] MEDS ORDERED: nitroGLYCERIN 0.4mg SUBLingual tab SL PRN (21:30)
[2024-08-03] MEDS ORDERED: regadenoson 0.4mg/5ml syringe IV PRN (21:30)
[2024-08-04] VITALS (16 sets, daily range): BP systolic 110–144; BP diastolic 61–82; PULSE 51–102; RESP 12–20; TEMP 97.2–98.9; O2SAT 90–98
[2024-08-04 07:05] LABS: BASOPHILS % (AUTO) 0 % (0-1); EOSINOPHILS % (AUTO) 0 % (0-6); HEMOGLOBIN 11.2 g/dl (14.0-17.9); LYMPHOCYTES # (AUTO) 0.4 X10'3 (1.1-4.8); LYMPHOCYTES % (AUTO) 4.1 % (21-51); MEAN CORPUSCULAR HEMOGLOBIN 20.9 PG (27.0-31.0); MEAN CORPUSCULAR HGB CONC 28.6 g/dL (33.0-36.5); MEAN PLATELET VOLUME 7.2 FL (7.4-10.4); MONOCYTES # (AUTO) 0.2 X10'3 (0-0.9); NEUTROPHILS # (AUTO) 8.2 X10'3 (1.8-7.7); NEUTROPHILS % (AUTO) 93.9 % (42-75); PLATELET COUNT 272 X10'3 (140-440); RED BLOOD COUNT 5.34 X10'6 (4.70-6.10); RED CELL DISTRIBUTION WIDTH 20.4 % (11.5-14.5); WHITE BLOOD COUNT 8.7 X10'3 (4.5-11.0)
[2024-08-04 07:38] LABS: HEMATOCRIT 35.9 % (42.0-52.0)
[2024-08-04 07:39] LABS: MEAN CORPUSCULAR VOLUME 70.9 FL (78-98)
[2024-08-04 07:40] LABS: ALANINE AMINOTRANSFERASE 25 U/L (12-78); ALBUMIN 2.6 G/DL (3.4-5.0); ALBUMIN/GLOBULIN RATIO 0.8 (1.1-1.5); ALKALINE PHOSPHATASE 59 IU/L (46-116); ANION GAP 4 (8-16); ASPARTATE AMINO TRANSFERASE 17 U/L (10-37); BILIRUBIN,TOTAL 0.4 MG/DL (0.1-1.0); BLOOD UREA NITROGEN 31 MG/DL (7-18); BUN/CREATININE RATIO 24.2 (10.0-20.0); CALCIUM 8.3 MG/DL (8.5-10.1); CHLORIDE 104 MMOL/L (99-107); CREATININE 1.28 MG/DL (0.60-1.10); GLUCOSE 145 MG/DL (70-104); MAGNESIUM 2.3 MG/DL (1.5-2.4); PHOSPHORUS 4.5 MG/DL (2.3-4.5); POTASSIUM 4.2 MMOL/L (3.5-5.1); SODIUM 142 MMOL/L (135-145); TOTAL CARBON DIOXIDE 34.2 MMOL/L (24-32); eCRCL 57 ML/MIN; eGFR 56 ML/MIN
[2024-08-04] MEDS ORDERED: nicotine 14mg patch - 24hr TD SCH (08:00)
[2024-08-04 08:12] LABS: % IRON SATURATION 3 % (11-46); IRON 12 UG/DL (53-167); TOTAL IRON BINDING CAPACITY 449 UG/DL (259-388)
[2024-08-04] MEDS: normal saline 1000ml 1,000 ML IV ONE (12:10)
[2024-08-04 14:12] LABS: BILIRUBIN,URINE NEGATIVE (Neg); CLARITY,URINE CLEAR (Clear); COLOR,URINE YELLOW (Yellow); GLUCOSE, URINE >=1000 mg/dl (Neg); KETONES,URINE NEGATIVE (Neg); LEUKOCYTE ESTERASE ,URINE NEGATIVE (Neg); NITRITES, URINE NEGATIVE (Neg); OCCULT BLOOD,URINE NEGATIVE (Neg); PROTEIN,URINE NEGATIVE (Neg); UROBILINOGEN,URINE 0.2 E.U/dL (0.2-1.0)
[2024-08-04 14:15] LABS: SODIUM,URINE RANDOM 69 MEQ/L; TOTAL PROTEIN,URINE RANDOM < 6.0 MG/DL
[2024-08-04 14:19] LABS: UA COLLECTION TYPE NON-SPECIFIED
[2024-08-04 14:20] LABS: BACTERIA,URINE NONE SEEN /HPF (Neg); RBC,URINE NONE SEEN /HPF (0-2); SQUAMOUS EPITHELIAL CELL,UR FEW /LPF (FEW); WBC,URINE 0-4 /HPF (0-4)
[2024-08-05] VITALS (20 sets, daily range): BP systolic 105–138; BP diastolic 55–74; PULSE 63–96; RESP 16–20; TEMP 97.4–98; O2SAT 87–98
[2024-08-05 07:54] LABS: BASOPHILS % (AUTO) 0 % (0-1); EOSINOPHILS % (AUTO) 0 % (0-6); HEMATOCRIT 39.3 % (42.0-52.0); HEMOGLOBIN 11.2 g/dl (14.0-17.9); LYMPHOCYTES # (AUTO) 0.3 X10'3 (1.1-4.8); LYMPHOCYTES % (AUTO) 1.9 % (21-51); MEAN CORPUSCULAR HEMOGLOBIN 20.6 PG (27.0-31.0); MEAN CORPUSCULAR HGB CONC 28.4 g/dL (33.0-36.5); MEAN CORPUSCULAR VOLUME 72.6 FL (78-98); MEAN PLATELET VOLUME 7.4 FL (7.4-10.4); MONOCYTES # (AUTO) 0.5 X10'3 (0-0.9); MONOCYTES % (AUTO) 2.9 % (2-12); NEUTROPHILS # (AUTO) 15.1 X10'3 (1.8-7.7); NEUTROPHILS % (AUTO) 95.2 % (42-75); PLATELET COUNT 285 X10'3 (140-440); RED BLOOD COUNT 5.42 X10'6 (4.70-6.10); RED CELL DISTRIBUTION WIDTH 20.5 % (11.5-14.5); WHITE BLOOD COUNT 15.8 X10'3 (4.5-11.0)
[2024-08-05 07:59] LABS: ALANINE AMINOTRANSFERASE 20 U/L (12-78); ALBUMIN 2.7 G/DL (3.4-5.0); ALBUMIN/GLOBULIN RATIO 0.8 (1.1-1.5); ALKALINE PHOSPHATASE 54 IU/L (46-116); ANION GAP 3 (8-16); ASPARTATE AMINO TRANSFERASE 14 U/L (10-37); BILIRUBIN,TOTAL 0.4 MG/DL (0.1-1.0); BLOOD UREA NITROGEN 36 MG/DL (7-18); BUN/CREATININE RATIO 28.1 (10.0-20.0); CALCIUM 8.3 MG/DL (8.5-10.1); CHLORIDE 104 MMOL/L (99-107); CREATININE 1.28 MG/DL (0.60-1.10); GLUCOSE 133 MG/DL (70-104); MAGNESIUM 2.5 MG/DL (1.5-2.4); PHOSPHORUS 4.6 MG/DL (2.3-4.5); POTASSIUM 4.1 MMOL/L (3.5-5.1); SODIUM 141 MMOL/L (135-145); TOTAL CARBON DIOXIDE 34.4 MMOL/L (24-32); TOTAL PROTEIN 6.1 G/DL (6.4-8.2); eCRCL 57 ML/MIN; eGFR 56 ML/MIN
[2024-08-05] MEDS: regadenoson 0.4mg/5ml syringe IV ONE (14:22)
[2024-08-06] VITALS (11 sets, daily range): BP systolic 109–132; BP diastolic 68–109; PULSE 74–110; RESP 15–24; TEMP 97.6–98.1; O2SAT 90–97
[2024-08-06] MEDS ORDERED: SACU1TAB PO (08:15)
[2024-08-06] MEDS ORDERED: PRED10TA23 PO (08:15)
[2024-08-06] MEDS ORDERED: EMPA10TA PO (08:15)
[2024-08-06 08:42] LABS: BASOPHILS % (AUTO) 0.1 % (0-1); EOSINOPHILS % (AUTO) 0 % (0-6); HEMATOCRIT 40.5 % (42.0-52.0); HEMOGLOBIN 11.6 g/dl (14.0-17.9); LYMPHOCYTES # (AUTO) 0.7 X10'3 (1.1-4.8); MEAN CORPUSCULAR HEMOGLOBIN 20.7 PG (27.0-31.0); MEAN CORPUSCULAR HGB CONC 28.5 g/dL (33.0-36.5); MEAN CORPUSCULAR VOLUME 72.7 FL (78-98); MEAN PLATELET VOLUME 7.2 FL (7.4-10.4); MONOCYTES # (AUTO) 0.6 X10'3 (0-0.9); MONOCYTES % (AUTO) 3.7 % (2-12); NEUTROPHILS # (AUTO) 15.1 X10'3 (1.8-7.7); NEUTROPHILS % (AUTO) 92.2 % (42-75); PLATELET COUNT 294 X10'3 (140-440); RED BLOOD COUNT 5.57 X10'6 (4.70-6.10); RED CELL DISTRIBUTION WIDTH 20.6 % (11.5-14.5); WHITE BLOOD COUNT 16.4 X10'3 (4.5-11.0)
[2024-08-06 08:51] LABS: ALANINE AMINOTRANSFERASE 22 U/L (12-78); ALBUMIN 2.7 G/DL (3.4-5.0); ALBUMIN/GLOBULIN RATIO 0.8 (1.1-1.5); ALKALINE PHOSPHATASE 53 IU/L (46-116); ANION GAP 6 (8-16); ASPARTATE AMINO TRANSFERASE 14 U/L (10-37); BILIRUBIN,TOTAL 0.5 MG/DL (0.1-1.0); BLOOD UREA NITROGEN 39 MG/DL (7-18); BUN/CREATININE RATIO 31.7 (10.0-20.0); CALCIUM 8.4 MG/DL (8.5-10.1); CHLORIDE 102 MMOL/L (99-107); CREATININE 1.23 MG/DL (0.60-1.10); GLUCOSE 118 MG/DL (70-104); MAGNESIUM 2.6 MG/DL (1.5-2.4); PHOSPHORUS 5.2 MG/DL (2.3-4.5); POTASSIUM 4.5 MMOL/L (3.5-5.1); SODIUM 143 MMOL/L (135-145); TOTAL PROTEIN 6.1 G/DL (6.4-8.2); eCRCL 59 ML/MIN; eGFR 59 ML/MIN
[2024-08-06 11:16] LABS: PLATELET ESTIMATE NORMAL
[2024-08-06 11:17] LABS: ANISOCYTOSIS 3+; MICROCYTOSIS 1+
[2024-08-06 11:18] LABS: ELLIPTOCYTES FEW; SPHEROCYTES 1+; TEAR DROP CELLS FEW
[2024-08-06] MEDS ORDERED: BUDE10.2 INH (16:38)
[2024-08-06] MEDS ORDERED: ALBU8HFA PO (16:38)
== END 2024-08-06 18:06 | disposition home or self-care (01) | DRG 280 ==
LOC: ER 11:40 → ED HOLD 13:06 → PCU 3S 16:37
PROVIDERS: ADMIT Family Medicine; ATTEND Family Medicine
PROC: CB1YYZZ Planar Nuclear Medicine Imaging of Respiratory System using Other Radionuclide (ICD-10-PCS; 2024-08-04)
PROC: 4A02XM4 Measurement of Cardiac Total Activity, External Approach (ICD-10-PCS; principal; 2024-08-05)
PROC: 3E033HZ Introduction of Radioactive Substance into Peripheral Vein, Percutaneous Approach (ICD-10-PCS; 2024-08-05)
DX: I13.0 Hypertensive heart and chronic kidney disease with heart failure and stage 1 through stage 4 chronic kidney disease, or unspecified chronic kidney disease (principal); I50.33 Acute on chronic diastolic (congestive) heart failure; I21.A1 Myocardial infarction type 2; J96.01 Acute respiratory failure with hypoxia; N17.0 Acute kidney failure with tubular necrosis; J44.1 Chronic obstructive pulmonary disease with (acute) exacerbation; N18.9 Chronic kidney disease, unspecified; E83.51 Hypocalcemia; D50.8 Other iron deficiency anemias; Z91.041 Radiographic dye allergy status; Z88.0 Allergy status to penicillin; Z79.01 Long term (current) use of anticoagulants; Z79.899 Other long term (current) drug therapy; Z86.718 Personal history of other venous thrombosis and embolism
CPT/HCPCS: 36415; 71045; 78452; 78582; 80048; 80053; 80061; 80305; 81001; 82570; 82728; 82948; 83036; 83540; 83550; 83735; 83880; 84100; 84133; 84156; 84300; 84466; 84484; 85008; 85025; 85379; 85610; 85730; 87081; 93005; 93017; 93306; 93970; 94640; 94760; 97116; 97161; 99285; A4615; A9500; A9539; A9540; G0378; J0696; J1644; J1815; J1940; J2785; J2919; J7030; J7040

== ENCOUNTER 2025-09-26 12:03 | Emergency (ER) | payer MEDICARE, MEDICAID ==
[~2025-09-26] VITALS: Ht 175.3 cm; Wt 98.0 kg
[~2025-09-26 12:03] MED LIST changes: +EMPA10TA PO; +SACU1TAB PO
[2025-09-26 12:12] VITALS: BP 141/81; PULSE 88; RESP 19; TEMP 98.1; O2SAT 93
--- NOTE | 2025-09-26 12:41 | RADIOLOGY REPORT ---
CLINICAL INDICATION: Fracture LEFT 5TH DIGIT TECHNIQUE: AP view of the left hand and 2 additional views of the left 5th finger were performed. DI FINGER(S) Comparison: None FINDINGS/IMPRESSION: 1. Displaced spiral fracture of the left 5th finger proximal phalanx shaft and neck. 2. No other acute fractures are identified about the left hand. 3. 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 There may be widening of the scapholunate interval. Correlate for signs and symptoms of SLAC wrist. 4. 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
[2025-09-26] MEDS ORDERED: HYDR-3965 PO (12:58)
--- NOTE | 2025-09-26 12:59 | Physician Documentation ---
History of Present Illness ~ Chief Complaint: Hand pain Stated Complaint: L PINKY PAIN Time Seen by MD: 12:13 Primary Medical Doctor: DR. VILLALOBOS [facility] HPI 70-year-old male right-hand dominant he had a mechanical fall last night in the middle of the night breaking his fall with his left pinky food. Presents to the emergency department with a mild deformity to the left pinky finger. Tetanus within 5 years: No Medication Reconciliation Allergies: Coded Allergies: Iodinated Contrast Media (Verified Allergy, Severe, 09/26/25) Uncoded Allergies: PENICILLIN (Allergy, Unknown, abdominal cramping, 10/03/22) Scheduled Apixaban (Eliquis), 5 MG PO BID Furosemide (Furosemide), 1 TAB PO DAILY Metoprolol Succinate (Metoprolol Succinate), 1 TAB PO DAILY, (Reported) Sacubitril/Valsartan (Entresto 24 mg-26 mg Tablet), 1 TABLET PO BID Scheduled PRN Hydrocodone Bit/Acetaminophen 5/325 MG ([place] 5/325 MG), 1 TAB PO Q6H PRN for pain Miscellaneous Medications Meloxicam* (Meloxicam*), (Reported) Discontinued Medications Amlodipine Besylate (Amlodipine Besylate), 1 TAB PO DAILY Discontinued Reason: patient no longer taking Budesonide/Formoterol Fumarate (Symbicort 160-4.5 Mcg Inhaler), 2 PUFFS INH Q12H Discontinued Reason: patient no longer taking Budesonide/Formoterol Fumarate (Symbicort 160-4.5 Mcg Inhaler), 2 PUFFS INH Q12H Discontinued Reason: patient no longer taking Empagliflozin (Jardiance), 10 MG PO DAILY Discontinued Reason: patient no longer taking Folic Acid* (Folic Acid*), 1 TAB PO DAILY Discontinued Reason: patient no longer taking Lactobacillus Casei/Folic Acid (Restora Rx Capsule), 1 CAP PO DAILY Discontinued Reason: completed med therapy Multivitamin (Multi Vitamin Daily), 1 TAB PO DAILY Discontinued Reason: patient no longer taking Nicotine 14 MG Patch* (Habitrol 14 MG Patch*), 1 PATCH TD DAILY Discontinued Reason: patient no longer taking Thiamine HCl (Vitamin B-1), 2 TAB PO DAILY Discontinued Reason: patient no longer taking [Albuterol], (Reported) Discontinued Reason: patient no longer taking Past Medical History Patient History: CKD (chronic kidney disease) FATHER MOTHER FH: heart failure FATHER Liver failure MOTHER Alcohol Use: Heavy Drug Use: none Lives with: Spouse Lives In: Home Occupation: employed Review of Systems All Other Systems at this time: Reviewed and Negative Musculoskeletal: Reports: pain, joint pain, joint swelling Physical Exam Vital Signs: RN Vital Signs have been reviewed: Yes, Temperature: 98.1, Source: Oral, Heart Rate: 88, Respiratory Rate: 19, BP: 141/81, Pulse Oximetry: 93, Weight: 98.000 Oxygen Flow Rate: 0 General Appearance: alert, WD/WN, mild distress EENT: PERRL/EOMI Neck: normal inspection Respiratory: lungs clear Shoulder: normal inspection Elbow/Forearm: normal inspection Wrist: normal inspection Digit: bone tenderness, deformity Digit left 5th pinky with deformity Digit Strength: decreased on extension, decreased on flexion Skin: normal color Neurologic: oriented x4 Psychiatric: normal mood/affect Progress Results/Orders Results/Orders Vital Signs 09/26/25 12:12 Temp 98.1 Pulse 88 Resp 19 B/P (MAP) 141/81 Pulse Ox 93 O2 Flow Rate 0 Medical Decision Making Additional information obtaine: N/A Findings Examination history consistent with a closed left proximal phalanx fracture of his 5th digit on the right hand. X-rays obtained and confirmed fracture. Hematoma block prior to immobilization in ulnar gutter splint. Patient will be referred to orthopedist for follow up in definitive fracture management. General Diff Dx:Considerations: Include: Contusion, Fracture, Malunion, Ne urovascular injury Shoulder Diff Dx:Consideration: Include: Other Elbow Diff Dx:Considerations: Include: Other Wrist Diff Dx:Considerations: Include: Other Hand Diff Dx:Considerations: Include: Other (Noncontributory) Finger Diff Dx:Considerations: Include: Abrasion, Cellulitis, Contusion, Dislocation, Fracture, Hematoma, Laceration, Neurovascular injury, Open fracture, Subungual hematoma, Other Departure Disposition: 01 HOME / SELF CARE / HOMELESS Impression: Primary Impression: Finger fracture, left Qualified Codes: S62.617A - Displaced fracture of proximal phalanx of left little finger, initial encounter for closed fracture Condition: Improved Discharge Instructions: Finger Fracture, Adult Additional Instructions: Please follow up with the office of Dr. Garcia regarding definitive fracture management that may include casting and/or surgery. Please keep your splint clean and dry. Begin pain medicine as directed and return as needed interim. Thank you for visiting [facility]. Referrals: NO PRIMARY CARE PROVIDER (PCP) CALE GARCIA MD 1 week 70-year-old right-hand dominant male with a closed left 5th proximal phalanx fracture. Thank you for evaluating [facility] ER Prescriptions Hydrocodone Bit/Acetaminophen 5/325 MG ([place] 5/325 MG) 5 Mg/325 Mg Tablet 1 TAB PO Q6H PRN for pain, #16 TAB Prov: JUNAID INGRAM 09/26/25 Education Educated: Patient Educated regarding: diagnosis, treatment, prognosis, need for follow up Signature Scribe Signature: . Attestation: . JUNAID INGRAM Sep 26, 2025 12:59 JEROME FALCON MD Sep 26, 2025 15:43
[2025-09-26] MEDS ORDERED: METO-395 PO (13:12)
== END 2025-09-26 13:54 | disposition home or self-care (01) ==
LOC: ER 12:04
DX: S62.617A Displaced fracture of proximal phalanx of left little finger, initial encounter for closed fracture (principal); N18.9 Chronic kidney disease, unspecified; F10.90 Alcohol use, unspecified, uncomplicated; Z91.041 Radiographic dye allergy status; Z79.899 Other long term (current) drug therapy; Y90.9 Presence of alcohol in blood, level not specified; W18.39XA Other fall on same level, initial encounter; Y93.89 Activity, other specified; Y92.89 Other specified places as the place of occurrence of the external cause; Y99.8 Other external cause status
CPT/HCPCS: 29125; 73140; 99283; A6446; A6449